=== PATIENT | female | born 1960 | race African-American/Black ===

== ENCOUNTER → 2021-08-18 | Outpatient (CLI) | payer BC ==
[~2021-08-18] MED LIST: CRESTOR5 MG PO; ELAVIL10 MG PO; FLEXERIL10 MG PO; FLONASE NASAL S16 GM; FORT1000TA PO; GLUCOTROL 5M5 MG/TAB PO; LANTUS SOLOS100 U/ML SC; LISINOPRIL/HCTZ1 TA1 PO; NESINA25 PO; ULTRAM 50MG TAB50 MG
== END ==
LOC: COL.RAD 08:52
DX: K76.0 Fatty (change of) liver, not elsewhere classified (principal); N28.89 Other specified disorders of kidney and ureter

== ENCOUNTER → 2021-10-13 | Outpatient (CLI) | payer BC | LOC: MC.RAD 14:59 | DX: Z12.31 Encounter for screening mammogram for malignant neoplasm of breast (principal); N63.20 Unspecified lump in the left breast, unspecified quadrant ==

== ENCOUNTER → 2021-10-15 | Outpatient (CLI) | payer BC | LOC: MC.RAD 12:29 | DX: N63.20 Unspecified lump in the left breast, unspecified quadrant (principal) ==

== ENCOUNTER 2022-03-21 08:01 | Emergency (ER) | payer BC ==
[~2022-03-21] VITALS: Ht 170.2 cm; Wt 70.5 kg
[2022-03-21 08:17] VITALS: BP 146/84; TEMP 98.1
[2022-03-21] MEDS ORDERED: PRINZIDE 12.5 M1 TA1 PO (08:25)
[2022-03-21] MEDS ORDERED: AMITRIPTYLINE H10 M1 PO (08:25)
[2022-03-21 10:05] VITALS: PULSE 74
== END 2022-03-21 10:05 | disposition home or self-care (01) ==
LOC: COL.ER 08:01
DX: M79.671 Pain in right foot (principal); Z98.890 Other specified postprocedural states

== ENCOUNTER → 2022-04-29 | Outpatient (CLI) | payer BC ==
[~2022-04-29] MED LIST changes: +AMITRIPTYLINE H10 M1 PO; +PRINZIDE 12.5 M1 TA1 PO
== END ==
LOC: MC.RAD 13:43
DX: R92.8 Other abnormal and inconclusive findings on diagnostic imaging of breast (principal)

== ENCOUNTER → 2022-10-22 | Outpatient (CLI) | payer BC ==
[~2022-10-22] VITALS: Ht 170.2 cm; Wt 69.4 kg
[2022-10-22] VITALS (10 sets, daily range): BP systolic 117–166; BP diastolic 67–94; PULSE 86–93; TEMP 98.4
[~2022-10-22] MED LIST changes: +BC PAIN RLF 841 EACH PO; +CLARITIN-D 10 M1 T24 PO
[2022-10-22 12:20] LABS: PROTHROMBIN TIME 11.6 SECONDS (9.7-12.8)
== END ==
LOC: COL.RAD 11:10
PROVIDERS: Family Medicine
DX: R74.8 Abnormal levels of other serum enzymes (principal)
CPT/HCPCS: 32109